=== PATIENT | female | born 1975 | race Caucasian/White ===

== ENCOUNTER 2017-10-07 22:00 | Inpatient (IN) | payer BC ==
[~2017-10-07] VITALS: Ht 157.5 cm; Wt 91.6 kg
[~2017-10-07 22:00] MED LIST: ERGOCALCIF50000 UNIT PO; FOLIC ACID1 MG PO; HUMIRA PEN40 MG/0.4 SC; HYDROCHLOROTHIA25 MG PO; IBUPROFEN800 MG PO; IRON325 M1 PO; LISINOPRIL40 MG PO; METHOTREXATE2.5 MG PO; MIRALAX17 GM PO; MULTIPLE VITAM1 EACH PO; OSTEO BI-FLEX1 EAC2 PO; STOOL SOFTENER100 MG PO; TRAMADOL HCL50 MG PO; VITAMIN C1000 MG PO
[2017-10-08 06:06] VITALS: BP 113/55
[2017-10-08 06:20] VITALS: BP 113/55
[2017-10-08 10:06] LABS: HEMATOCRIT 27.3 % (36.0-46.0); HEMOGLOBIN 9.1 G/DL (11.9-15.5); MCV 90.7 FL (83-99)
[2017-10-08 13:15] VITALS: BP 96/52
[2017-10-08 16:05] VITALS: BP 91/55
[2017-10-08 20:04] VITALS: BP 103/58
[2017-10-09 00:25] VITALS: BP 93/51
[2017-10-09 04:30] VITALS: BP 102/50
[2017-10-09 06:33] LABS: HEMATOCRIT 25.2 % (36.0-46.0); HEMOGLOBIN 8.4 G/DL (11.9-15.5); MCV 91.6 FL (83-99)
[2017-10-09 07:00] LABS: CHLORIDE 104 MEQ/L (99-109); CREATININE 0.4 MG/DL (0.6-1.3); GFR ESTIMATE (CALCULATED) > 59 mL/min/; GLUCOSE 120 mg/dL (70-99); POTASSIUM 3.8 MEQ/L (3.7-5.4); SODIUM 136 MEQ/L (136-147); UREA NITROGEN (BUN) 11 mg/dL (9-23)
[2017-10-09 08:25] VITALS: BP 103/61
[2017-10-09 12:28] VITALS: BP 102/54
[2017-10-09 15:59] VITALS: BP 107/53
[2017-10-09 20:22] VITALS: BP 106/54
[2017-10-10] VITALS: BP 114/54
[2017-10-10 04:26] VITALS: BP 108/57
[2017-10-10 08:28] VITALS: BP 99/33
[2017-10-10] MEDS ORDERED: BENADRYL25 MG PO (09:17)
[2017-10-10] MEDS ORDERED: Salonpas 4% Patch TD (09:19)
[2017-10-10] MEDS ORDERED: ELIQUIS2.5 MG PO (09:20)
[2017-10-10] MEDS ORDERED: OXYCODONE HCL5 MG PO (09:20)
[2017-10-10 09:29] VITALS: BP 123/73
[2017-10-10 09:51] LABS: HEMOGLOBIN 9.4 G/DL (11.9-15.5); MCV 91.2 FL (83-99)
[2017-10-10 13:31] VITALS: BP 99/56
== END 2017-10-10 14:15 | DRG 470 ==
LOC: ENRESERV 22:00 → 3WEST 10-08 05:37 → 2SOUTH 10-08 05:37 → 3WEST 10-08 12:49 → 2SOUTH 10-08 13:06 → 3WEST 10-10 14:15
PROVIDERS: Orthopaedic Surgery; Physician Assistant
PROC: 0SR90JZ Replacement of Right Hip Joint with Synthetic Substitute, Open Approach (ICD-10-PCS; principal; 2017-10-08)
DX: M06.851 Other specified rheumatoid arthritis, right hip (principal); M16.11 Unilateral primary osteoarthritis, right hip; L40.52 Psoriatic arthritis mutilans; I10 Essential (primary) hypertension; F41.9 Anxiety disorder, unspecified; G43.909 Migraine, unspecified, not intractable, without status migrainosus; Z87.891 Personal history of nicotine dependence; E66.01 Morbid (severe) obesity due to excess calories; Z68.35 Body mass index [BMI] 35.0-35.9, adult
CPT/HCPCS: 80048; 82948; 85014; 85018; J0131; J1885; J2250; J3010; J7030; J7050; J7120; J8610; Q0175; S0020